=== PATIENT | female | born 1945 | race Caucasian/White ===

== ENCOUNTER 2016-05-10 12:04 | Emergency (ER) | payer OTHER ==
[2016-05-10 12:11] VITALS: TEMP 98
--- NOTE | 2016-05-10 12:31 | CPEKG ---
Heart Rate: 67 RR Interval: 896 P-R Interval: 180 QRSD Interval: 84 QT Interval: 400 QTC Interval: 423 P Pyrites: 7 QRS Pyrites: -1 T Wave Pyrites: 17 EKG Severity - ABNORMAL ECG - EKG Impression: SINUS RHYTHM Electronically Signed By: Chas Lantigua 10-May-2016 14:23:17
--- NOTE | 2016-05-10 12:34 | EDPHY ---
H & P Stated Complaint: Dizziness x 1 week Time Seen by Provider: 05/10/16 12:33 HPI/ROS: CHIEF COMPLAINT: Episodic dizziness for the past week, presyncope today, gastroesophageal reflux symptoms past week HISTORY OF PRESENT ILLNESS: The patient presents to the ED with a one-week history of episodic dizziness characterized primarily by symptoms of vertigo. Today the patient developed symptoms of presyncope. It occurred at 11:00 a.m. and lasted less than 1 minute. The patient has been having some symptoms of presumed gastroesophageal reflux over the past several days. Approximately a year ago the patient was seen in the ED for palpitations. As a result of that hospitalization, the patient ultimately underwent a coronary angiogram which demonstrated coronary artery disease which was not critical. The patient did not have a stent placed at that time. Patient tells me that she has had no recurrent palpitations. She denies chest pain. She denies dyspnea. Thje patient denies recent fall or trauma. She has no complaints of neck pain, cervical manipulation or history of connective tissue disorder.\ REVIEW OF SYSTEMS: A comprehensive 10 point review of systems is otherwise negative aside from elements mentioned in the history of present illness. Source: Patient Exam Limitations: No limitations - Personal History Current Tetanus/Diphtheria Vaccine: Yes Current Tetanus Diphtheria and Acellular Pertussis (TDAP): Yes Tetanus Vaccine Date: 2008 - Medical/Surgical History Hx Asthma: No Hx Chronic Respiratory Disease: No Hx Diabetes: No Hx Cardiac Disease: Yes Hx Renal Disease: No Hx Cirrhosis: No Hx Alcoholism: No Hx HIV/AIDS: No Hx Splenectomy or Spleen Trauma: No Other PMH: Hypertension; chest pain 2011-work up; Osteoporosis, HLD - Social History Smoking Status: Never smoked - Physical Exam Exam: General Appearance: Alert, no distress Eyes: Pupils equal and round no pallor or injection ENT, Mouth: Mucous membranes moist Respiratory: There are no retractions, lungs are clear to auscultation Cardiovascular: Regular rate and rhythm Gastrointestinal: Abdomen is soft and nontender, no masses, bowel sounds normal Neurological: A&O, normal motor function, normal sensory exam, normal cranial nerves Skin: Warm and dry, no rashes Musculoskeletal: Neck is supple nontender Extremities: symmetrical, full range of motion Constitutional: Initial Vital Signs Temperature (C) 36.7 C 05/10/16 12:08 Heart Rate 66 05/10/16 12:08 Respiratory Rate 17 05/10/16 12:08 Blood Pressure 128/73 H 05/10/16 12:08 O2 Sat (%) 95 05/10/16 12:08 O2 Delivery Mode Room Air Allergies/Adverse Reactions: hydrochlorothiazide Allergy (Intermediate, Unverified 05/10/16 12:06) Other-Enter Comments caffeine Allergy (Verified 05/10/16 12:06) migraine floyd chocolate Allergy (Uncoded 05/10/16 12:06) red wine Allergy (Uncoded 05/10/16 12:06) Home Medications: Medication Instructions Recorded Alendronate Sodium [Fosamax 70 MG 70 mg PO MO@0700 12/14/11 (*)] Aspirin [Aspirin 81mg (*)] 81 mg PO DAILY 12/14/11 Atorvastatin Calcium [Lipitor 10 10 mg PO DAILY 12/14/11 mg (*)] Calcium Carb W/Vit D [Calcium Carb 500 mg PO BID 12/14/11 W/Vit D 500/200 (*)] Multivitamins [Multivitamin (*)] 1 each PO DAILY 12/14/11 cycloSPORINE 0.05% [Restasis Opht 1 drop EACHEYE BID 12/14/11 Drops(*)] Lisinopril [Zestril 10 mg (*)] 10 mg PO DAILY #0 tab 12/15/11 Herbals/Supplements -Info Only 1 ea PO DAILY 07/09/15 Clopidogrel Bisulfate [Plavix] 75 mg PO DAILY #30 tab 07/11/15 Nitroglycerin [Nitrostat 0.4 mg 0.4 mg SL PRN PRN #10 btl 07/11/15 (*)] Medical Decision Making - Diagnostics EKG Interpretation: EKG: Complete interpretation has been separately recorded in the [employer] archive. Summary impression: Sinus rhythm ED Course/Re-evaluation: The patient presents to the ED with several weeks of vague dizziness characterized by mild presyncope as well as mild vertigo. Today she had a more significant episode of true presyncope lasting less than 1 minute. The patient had no chest pain or shortness of breath. The patient is now asymptomatic. The patient had an EKG upon arrival which is normal. Her troponin is negative. The patient did undergo an echocardiogram which demonstrates no acute changes. The patient was monitored in the ED without recurrent symptoms, arrhythmia or hypotension. At this point time I do feel the patient can safely be discharged home. I would like her to follow up with her middleware solutions architect as scheduled. She understands to return to the ED for symptoms of syncope, chest pain, shortness of breath or other concerns. I do believe that her symptoms today were more likely vasovagal in nature. Differential Diagnosis: Differential diagnosis considered includes vasovagal episode, metabolic abnormality, anemia, arrhythmia, myocardial infarction, cardiomyopathy - Data Points Laboratory Results: Laboratory Results 05/10/16 12:37 05/10/16 12:37 05/10/16 05/10/16 12:37 12:37 WBC 5.80 10^3/uL 10^3/uL (3.80-9.50) RBC 4.65 10^6/uL 10^6/uL (4.18-5.33) Hgb 14.5 g/dL g/dL (12.6-16.3) Hct 42.4 % % (38.0-47.0) MCV 91.2 fL fL (81.5-99.8) MCH 31.2 pg pg (27.9-34.1) MCHC 34.2 g/dL g/dL (32.4-36.7) RDW 12.8 % % (11.5-15.2) Plt Count 247 10^3/uL 10^3/uL (150-400) MPV 9.6 fL fL (8.7-11.7) Neut % (Auto) 54.4 % % (39.3-74.2) Lymph % (Auto) 33.6 % % (15.0-45.0) Bell % (Auto) 9.0 % % (4.5-13.0) Eos % (Auto) 1.6 % % (0.6-7.6) Baso % (Auto) 0.9 % % (0.3-1.7) Nucleat RBC Rel Count 0.0 % % (0.0-0.2) Absolute Neuts (auto) 3.16 10^3/uL 10^3/uL (1.70-6.50) Absolute Lymphs (auto) 1.95 10^3/uL 10^3/uL (1.00-3.00) Absolute Monos (auto) 0.52 10^3/uL 10^3/uL (0.30-0.80) Absolute Eos (auto) 0.09 10^3/uL 10^3/uL (0.03-0.40) Absolute Basos (auto) 0.05 10^3/uL 10^3/uL (0.02-0.10) Absolute Nucleated RBC 0.00 10^3/uL 10^3/uL (0-0.01) Immature Gran % 0.5 % % (0.0-1.1) Immature Gran # 0.03 10^3/uL 10^3/uL (0.00-0.10) Sodium 143 mEq/L mEq/L (134-144) Potassium 4.1 mEq/L mEq/L (3.5-5.2) Chloride 109 mEq/L mEq/L (97-110) Carbon Dioxide 23 mEq/l mEq/l (22-31) Anion Gap 11 mEq/L mEq/L (8-16) BUN 18 mg/dL mg/dL (7-23) Creatinine 0.8 mg/dL mg/dL (0.6-1.0) Estimated GFR > 60 Glucose 80 mg/dL mg/dL (70-100) Calcium 9.4 mg/dL mg/dL (8.5-10.4) Troponin I < 0.012 ng/mL ng/mL (0-0.034) Medications Given: Discontinued Medications Sodium Chloride (Ns) 1,000 mls @ 0 mls/hr IV ONCE ONE PRN Reason: Wide Open Stop: 05/10/16 13:30 Last Admin: 05/10/16 13:31 Dose: 1,000 mls Departure - Departure Disposition: Home, Routine, Self-Care Clinical Impression: Pre-syncope Condition: Good Instructions: Near Syncope (ED) Additional Instructions: 1. Please schedule a follow-up appointment with both your middleware solutions architect and primary care provider for a recheck in the next week. 2. Please return to the ED for any chest pain, shortness of breath, worsening symptoms or other concerns. Referrals: Phylicia Hannah PA [Primary Care Provider] - As per Instructions
[2016-05-10 13:06] LABS: % IMMATURE GRANULYOCYTES 0.5 % (0.0-1.1); ABSOLUTE IMMATURE GRANULOCYTES 0.03 10^3/uL (0.00-0.10); ADD DIFF? NO; ADD MORPH? NO; ADD SCAN? NO; ATYPICAL LYMPHOCYTE FLAG 30 (0-99); FRAGMENT RBC FLAG 0 (0-99); HEMATOCRIT 42.4 % (38.0-47.0); HEMOGLOBIN 14.5 g/dL (12.6-16.3); LEFT SHIFT FLG 10 (0-99); LIPEMIA HEMOLYSIS FLAG 90 (0-99); MEAN CELL HEMOGLOBIN 31.2 pg (27.9-34.1); MEAN CELL HEMOGLOBIN CONCENTR. 34.2 g/dL (32.4-36.7); MEAN CELL VOLUME 91.2 fL (81.5-99.8); MEAN PLATELET VOLUME 9.6 fL (8.7-11.7); PLATELET CLUMPS FLAG 0 (0-99); PLATELET COUNT 247 10^3/uL (150-400); RED BLOOD CELL COUNT 4.65 10^6/uL (4.18-5.33); RED CELL DISTRIBUTION WIDTH 12.8 % (11.5-15.2)
[2016-05-10 13:10] LABS: ANION GAP 11 mEq/L (8-16); CALCIUM 9.4 mg/dL (8.5-10.4); CARBON DIOXIDE 23 mEq/l (22-31); CHLORIDE 109 mEq/L (97-110); CREATININE 0.8 mg/dL (0.6-1.0); GLOMERULAR FILTRATION RATE > 60; GLUCOSE 80 mg/dL (70-100); POTASSIUM 4.1 mEq/L (3.5-5.2); SODIUM 143 mEq/L (134-144)
[2016-05-10 13:21] LABS: TROPONIN I < 0.012 ng/mL (0-0.034)
[2016-05-10] MEDS ORDERED: NS 1,000 ML IV ONE (13:29)
[2016-05-10 14:32] VITALS: BP 120/62; PULSE 70; RESP 16; O2SAT 94
--- NOTE | 2016-05-10 17:09 | ECHO ---
[id number] + + [address] : : [place] [address] : : [phone] + Adult Echocardiographic Report + ---+ :Name: GEOVANNA EVANS LStudy Date: 05/10/2016 01:51 PM : : Hospital Admission Number: [id number] : :: 1945 Gender: Female Height: 64 in : :Age: 70 yrs Race: WH Weight: 175 l b : :Reason For Study: Eval LV Fx : : BSA: 1.8 mete rs2: :History: Presyncope, Dizziness : + ---+ MMode/2D Measurements \T\ Calculations IVSd: 0.93 cm LVIDd: 5.5 cm FS: 34.8 % Ao root diam: 3.0 cm LVPWd: 1.2 cm LVIDs: 3.6 cm EDV(Teich): 145.0 ml ACS: 2.0 cm ESV(Teich): 53.0 ml LA dimension: 3.1 cm EF(Teich): 63.4 % Normal Measurement Values: + + :LVIDd (3.5-5.7cm) IVSd (0.6-1.1cm) LVPWd (0.6-1.1cm) Aortic Root (2.0-3.7cm)Left Atrium (1.5-4.0cm): :LV Vol(d) (76-115ml) LV Vol(s) (29-48ml) Ejec Fraction (50-65%)PV Heber (0.6- 1.2m/s) TV Heber (0.4-1.0m/s) : :MV E Heber (0.8-1.0m/s)MV A Heber (0.3-1.0m/s)LVOT Heber (0.7-1.2m/s) Asc Ao Heber ( 0.9-1.8m/s) : + + Doppler Measurements \T\ Calculations MV E max heber: Ao V2 max: LV V1 max: PA V2 max: 52.8 cm/sec 151.0 cm/sec 80.0 cm/sec 80.1 cm/sec MV A max heber: Ao max P.1 mmHg LV V1 max PG: PA max P.1 cm/sec 2.6 mmHg 2.6 mmHg MV E/A: 0.74 Left Ventricle The left ventricle is normal in size. There is normal left ventricular wall thickness. The left ventricular ejection fraction is normal. There is Doppler evidence for diastolic dysfunction. Ejection Fraction = 64%. The left ventricular wall motion is normal. Right Ventricle The right ventricle is normal in size and function. Atria The left atrial size is normal. Right atrial size is normal. Mitral Valve The mitral valve is normal in structure and function. There is no mitral valve stenosis. There is trace mitral regurgitation. Tricuspid Valve Normal tricuspid valve. There is trace tricuspid regurgitation. Right ventricular systolic pressure is normal. Aortic Valve The aortic valve is normal in structure and function. There is no aortic stenosis. There is no aortic insufficiency. Pulmonic Valve The pulmonic valve is normal in structure and function. There is no pulmonic valvular regurgitation. Great Vessels The aortic root is normal size. Pericardium/Pleural There is no pericardial effusion. Conclusion A complete two-dimensional transthoracic echocardiogram was performed (2D, M-mode, Doppler and color flow Doppler). The left ventricular ejection fraction is normal. There is Doppler evidence for diastolic dysfunction. Ejection Fraction = 64%. The left ventricular wall motion is normal. The right ventricle is normal in size and function. The left atrial size is normal. There is trace mitral regurgitation. Normal tricuspid valve There is trace tricuspid regurgitation. Right ventricular systolic pressure is normal. The aortic valve is normal in structure and function. There is no aortic stenosis. The aortic root is normal size. There is no pericardial effusion. Final Reading Physician: Adriano Abraham signed on 05/10/2016 05:08 PM Ordering Physician: Chas Lantigua Performed By: Narendra Box, CS
== END 2016-05-10 14:36 | disposition home or self-care (01) ==
DX: R55 Syncope and collapse (principal); Z79.82 Long term (current) use of aspirin

== ENCOUNTER → 2016-12-11 | Outpatient (CLI) | payer OTHER | LOC: FIMAGING 15:00 | PROVIDERS: ATTEND Family Medicine | DX: R05 Cough (principal) ==

== ENCOUNTER → 2017-03-15 | Outpatient (CLI) | payer OTHER | LOC: BRMIMAGING 11:16 | PROVIDERS: ATTEND Physician Assistant | DX: Z12.31 Encounter for screening mammogram for malignant neoplasm of breast (principal) ==

== ENCOUNTER → 2017-06-22 | Outpatient (CLI) | payer OTHER | LOC: FIMAGING 11:09 | PROVIDERS: ATTEND Family Medicine | DX: N20.0 Calculus of kidney (principal) ==

== ENCOUNTER 2017-08-12 15:33 | Emergency (ER) | payer OTHER ==
[2017-08-12] MEDS ORDERED: HYDROmorphONE/DILAUDID 2 MG/ML INJ IVP ONE ×2 (16:09→18:36)
[2017-08-12] MEDS ORDERED: NS 1,000 ML IV ONE ×2 (16:09)
[2017-08-12] MEDS ORDERED: KETOROLAC 30 MG/1 ML SDV IVP ONE (16:09)
[2017-08-12] MEDS ORDERED: ONDANSETRON 4 MG/2 ML VIAL IVP ONE ×2 (16:09→19:04)
--- NOTE | 2017-08-12 16:13 | EDPHY ---
H & P Stated Complaint: left sided pain today had lithotripsy procedure this am Time Seen by Provider: 08/12/17 16:00 HPI/ROS: CHIEF COMPLAINT: Left flank pain HISTORY OF PRESENT ILLNESS: Patient is a 71-year-old female with a history of kidney stones who had lithotripsy this morning with [facility]. She had general anesthesia for the procedure. She did not have any scopes or invasive procedure. states she had some trouble recovering and had to have 3 doses of pain and nausea medicine until she felt well enough to go home. After getting home she had a return of her pain and nausea. He tried to give her her Flomax and Vicodin but she threw them up. They came here. She has not had a fever. She states that initially she had some hematuria but it is now resolved. No dysuria. She describes the pain is from the midline of her back on the left to the midline of her abdomen on the left. No diarrhea. No chest pain or shortness of breath. She states that she had similar symptoms and recovery after 2 previous lithotripsy episode several years ago. REVIEW OF SYSTEMS: Constitutional: denies: chills, fever, recent illness, recent injury EENTM: denies: blurred vision, double vision, nose congestion Respiratory: denies: cough, shortness of breath Cardiac: denies: chest pain, irregular heart rate, lightheadedness, palpitations Gastrointestinal/Abdominal: See HPI Genitourinary: See HPI Musculoskeletal: denies: joint pain, muscle pain Skin: denies: lesions, rash, jaundice, bruising Neurological: denies: headache, numbness, paresthesia, tingling, dizziness, weakness Hematologic/Lymphatic: denies: blood clots, easy bleeding, easy bruising Immunologic/allergic: denies: HIV/AIDS, transplant EXAM: GENERAL: Well-appearing, obese and in no acute distress. HEAD: Atraumatic, normocephalic. EYES: Pupils equal round and reactive to light, extraocular movements intact, sclera anicteric, conjunctiva are normal. ENT: TMs normal, nares patent, oropharynx clear without exudates. Slightly dry mucous membranes. NECK: Normal range of motion, supple without lymphadenopathy or JVD. LUNGS: Breath sounds clear to auscultation bilaterally and equal. No wheezes rales or rhonchi. HEART: Regular rate and rhythm without murmurs, rubs or gallops. ABDOMEN: Soft, nontender, normoactive bowel sounds. No guarding, no rebound. No masses appreciated. No bruising BACK: No CVA tenderness, no spinal tenderness, step-offs or deformities EXTREMITIES: Normal range of motion, no pitting or edema. No clubbing or cyanosis. NEUROLOGICAL: Cranial nerves II through XII grossly intact. Normal speech, normal gait. 5/5 strength, normal movement in all extremities, normal sensation PSYCH: Normal mood, normal affect. SKIN: Warm, dry, normal turgor, no visible rashes or lesions. Source: Patient, Family Exam Limitations: No limitations - Personal History Current Tetanus Diphtheria and Acellular Pertussis (TDAP): Yes Tetanus Vaccine Date: 2008 - Medical/Surgical History Hx Asthma: No Hx Chronic Respiratory Disease: No Hx Diabetes: No Hx Cardiac Disease: Yes Hx Renal Disease: No Hx Cirrhosis: No Hx Alcoholism: No Hx HIV/AIDS: No Hx Splenectomy or Spleen Trauma: No Other PMH: Hypertension; chest pain 2011-work up; Osteoporosis,. eyelid surg. and lithotripsy x 3 - Family History Significant Family History: No pertinent family hx - Social History Smoking Status: Never smoked Alcohol Use: Sober Drug Use: None Constitutional: Initial Vital Signs Temperature (C) 36.7 C 08/12/17 15:40 Heart Rate 98 08/12/17 15:40 Respiratory Rate 20 08/12/17 15:40 Blood Pressure 151/89 H 08/12/17 15:40 O2 Sat (%) 95 08/12/17 15:40 O2 Delivery Mode Room Air O2 (L/minute) 2 Allergies/Adverse Reactions: hydrochlorothiazide Allergy (Intermediate, Verified 08/12/17 15:46) Other-Enter Comments amoxicillin Allergy (Verified 08/12/17 15:46) caffeine Allergy (Verified 08/12/17 15:46) migraine floyd ciprofloxacin [From Cipro] Allergy (Verified 08/12/17 15:46) chocolate Allergy (Uncoded 08/12/17 15:46) red wine Allergy (Uncoded 08/12/17 15:46) Home Medications: Medication Instructions Recorded Aspirin [Aspirin 81mg (*)] 81 mg PO DAILY 12/14/11 Atorvastatin Calcium [Lipitor 10 10 mg PO DAILY 12/14/11 mg (*)] Calcium Carb W/Vit D [Calcium Carb 500 mg PO BID 12/14/11 W/Vit D 500/200 (*)] Multivitamins [Multivitamin (*)] 1 each PO DAILY 12/14/11 cycloSPORINE 0.05% [Restasis Opht 1 drop EACHEYE BID 12/14/11 Drops(*)] Lisinopril [Zestril 10 mg (*)] 10 mg PO DAILY #0 tab 12/15/11 Iron 08/12/17 Ketorolac Tromethamine 10 mg PO Q6H PRN #16 tab 08/12/17 Ondansetron Odt [Zofran Odt 4 mg 4 mg PO Q4 PRN #20 tab 08/12/17 (RX)] Medical Decision Making ED Course/Re-evaluation: We discussed options. Patient and would prefer not to repeat imaging or significant workup. They feel fairly confident that this is simply normal sequela of her procedure in similar to previous episodes. They are simply here for pain control and nausea control as well as hydration. I will check renal function and urinalysis. 5:20 p.m. patient is feeling much better. She is declining further medications. We continue to hydrate and await lab results. 6:30 p.m. patient is requesting another dose of Dilaudid. Lab work is reassuring. 7:15 p.m. the patient is feeling better. She is eager to go home. Additional prescriptions given. She is nontoxic-appearing. Differential Diagnosis: Partial list of the Differential diagnosis considered include but were not limited to; kidney stone, urinary tract infection, contusion and although unlikely based on the history and physical exam, I also considered perforation, abscess, hemorrhage, hematoma. I discussed these differential diagnoses and the plan with the patient as well as the usual and expected course. The patient understands that the diagnosis is provisional and that in medicine we are not always correct and that further workup is often warranted. Usual and customary warnings were given. All of the patient's questions were answered. The patient was instructed to return to the emergency department should the symptoms at all worsen or return, otherwise to followup with the physician as we discussed. - Data Points Laboratory Results: 08/12/17 17:20 POC Sodium 139 mEq/L mEq/L (135-145) POC Potassium 3.4 mEq/L mEq/L (3.3-5.0) POC Chloride 107.0 mEq/L mEq/L (97-110) POC Total CO2 22 mEq/L mEq/L (22-31) POC BUN 12 mg/dL mg/dL (7-23) POC Creatinine 0.9 mg/dL mg/dL (0.6-1.0) POC Glucose 140 mg/dL H mg/dL (70-100) POC Calcium 8.8 mg/dL mg/dL (8.5-10.4) Medications Given: Discontinued Medications Hydromorphone HCl (Dilaudid) 0.5 mg IVP EDNOW ONE Stop: 08/12/17 16:10 Last Admin: 08/12/17 16:40 Dose: 0.5 mg Hydromorphone HCl (Dilaudid) 0.5 mg IVP EDNOW ONE Stop: 08/12/17 18:37 Last Admin: 08/12/17 18:46 Dose: 0.5 mg Sodium Chloride (Ns) 1,000 mls @ 0 mls/hr IV EDNOW ONE; Wide Open PRN Reason: Protocol Stop: 08/12/17 16:10 Last Admin: 08/12/17 16:30 Dose: 1,000 mls Sodium Chloride (Ns) 1,000 mls @ 0 mls/hr IV EDNOW ONE; Wide Open PRN Reason: Protocol Stop: 08/12/17 16:10 Last Admin: 08/12/17 17:30 Dose: 1,000 mls Ketorolac Tromethamine (Toradol) 153 mg IVP EDNOW ONE Stop: 08/12/17 16:10 Last Admin: 08/12/17 19:11 Dose: Not Given Ketorolac Tromethamine (Toradol) 15 mg IVP EDNOW ONE Stop: 08/12/17 16:21 Last Admin: 08/12/17 16:39 Dose: 15 mg Ondansetron HCl (Zofran) 4 mg IVP EDNOW ONE Stop: 08/12/17 16:10 Last Admin: 08/12/17 16:37 Dose: 4 mg Point of Care Test Results: Chemistry 08/12/17 17:20 POC Sodium 139 mEq/L mEq/L (135-145) POC Potassium 3.4 mEq/L mEq/L (3.3-5.0) POC Chloride 107.0 mEq/L mEq/L (97-110) POC Total CO2 22 mEq/L mEq/L (22-31) POC BUN 12 mg/dL mg/dL (7-23) POC Creatinine 0.9 mg/dL mg/dL (0.6-1.0) POC Glucose 140 mg/dL H mg/dL (70-100) POC Calcium 8.8 mg/dL mg/dL (8.5-10.4) Urine Dip Collection Date 08/12/17 Collection Time 16:30 Specific [place] (1.002-1.030) 1.030 PH (5.0-7.5) 6.0 Leukocytes (Negative) Negative Nitrites (Negative) Negative Protein (Negative) 3+ Glucose (Negative) Negative Ketones (Negative) 3+ Urobilnogen (0.2-1.0 EU) 0.2 Bilirubin (Negative) Test Not Performed Blood (Negative) 3+ Departure - Departure Disposition: Home, Routine, Self-Care Clinical Impression: Renal colic on left side Condition: Fair Instructions: Renal Colic (ED) Referrals: Phylicia Hannah PA [Primary Care Provider] - As per Instructions Prescriptions: Ketorolac Tromethamine 10 mg PO Q6H PRN #16 tab PRN Reason: Pain/inflammation Ondansetron Odt [Zofran Odt 4 mg (RX)] 4 mg PO Q4 PRN #20 tab PRN Reason: Nausea & Vomiting
[2017-08-12] MEDS ORDERED: KETOROLAC 15 MG/1 ML SDV IVP ONE (16:20)
[2017-08-12 19:21] VITALS: BP 125/67
== END 2017-08-12 19:34 | disposition home or self-care (01) ==
LOC: CED 15:33
DX: N23 Unspecified renal colic (principal); I10 Essential (primary) hypertension; E86.9 Volume depletion, unspecified; Z79.82 Long term (current) use of aspirin
CPT/HCPCS: 96361; 96374; 96375; 96376; 99284; J1170; J1885; J2405; 80048-PO

== ENCOUNTER → 2017-09-17 | Outpatient (CLI) | payer OTHER | LOC: BRMIMAGING 15:40 | PROVIDERS: ATTEND Physician Assistant Medical | DX: R10.2 Pelvic and perineal pain (principal); R31.0 Gross hematuria; I87.8 Other specified disorders of veins; Z87.442 Personal history of urinary calculi | CPT/HCPCS: 74018-PO ==

== ENCOUNTER → 2018-05-13 | Outpatient (CLI) | payer OTHER | LOC: BRMIMAGING 08:43 | PROVIDERS: ATTEND Physician Assistant | DX: Z12.31 Encounter for screening mammogram for malignant neoplasm of breast (principal); Z13.820 Encounter for screening for osteoporosis; M81.0 Age-related osteoporosis without current pathological fracture; Z78.0 Asymptomatic menopausal state; Z87.81 Personal history of (healed) traumatic fracture; Z87.442 Personal history of urinary calculi ==